=== PATIENT | female | born 1995 | race Caucasian/White ===

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

== ENCOUNTER 2018-11-29 19:40 | Emergency (ER) | payer OTHER ==
[~2018-11-29] VITALS: Ht 168.9 cm; Wt 117.5 kg
[~2018-11-29 19:40] MED LIST: DIPH25CA58 PO; PRED50TA PO; TRIA15OI TP
[2018-11-29 19:53] VITALS: BP 137/87
[2018-11-29] MEDS ORDERED: AMOX500C PO (20:25)
--- NOTE | 2018-11-29 20:25 | PHYS DOC ---
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 Patient states that symptoms are progressively worsening. She denies any fever. She does admit to a dry cough but no sputum production.[] Review of Systems Review of Systems Constitutional: Denies fever or chills [] HENT: Complains of congestion and sore throat [] Respiratory: Complains of cough without shortness of breath [] Cardiovascular: No additional information not addressed in HPI [] Integument: Denies rash or skin lesions [] Neurologic: Denies headache, focal weakness or sensory changes [] Endocrine: Denies polyuria or polydipsia [] All other systems were reviewed and found to be within normal limits, except as documented in this note. Allergies Allergies Allergies Coded Allergies Type Severity Reaction Last Updated Verified No Known Drug Allergies 03/14/13 No Physical Exam Physical Exam Constitutional: Well developed, well nourished, no acute distress, non-toxic appearance. [] HENT: Normocephalic, atraumatic, bilateral external ears normal, pharyngeal erythema without exudates is noted. [] Neck: Normal range of motion, no tenderness, supple, no stridor. [] Cardiovascular:Heart rate regular rhythm, no murmur [] Lungs & Thorax: Bilateral breath sounds clear to auscultation [] EKG EKG [] Radiology/Procedures Radiology/Procedures [] Course & Med Decision Making Course & Med Decision Making Pertinent Labs and Imaging studies reviewed. (See chart for details) [] Dragon Disclaimer Dragon Disclaimer This electronic medical record was generated, in whole or in part, using a voice recognition dictation system. Departure Departure Impression: Primary Impression: Pharyngitis Disposition: 01 HOME, SELF-CARE Condition: STABLE Referrals: UNKNOWN PCP NAME (PCP) Patient Instructions: Viral and Bacterial Pharyngitis Scripts Amoxicillin (AMOXICILLIN) 500 Mg Capsule 1 CAP PO TID, #30 CAP Prov: TARA ROBIN Jr. DO 11/29/18 Problem Qualifiers Primary Impression: Pharyngitis Pharyngitis/tonsillitis etiology: unspecified etiology Qualified Codes: J02.9 - Acute pharyngitis, unspecified TARA ROBIN Jr. DO Nov 29, 2018 20:25
== END 2018-11-29 20:39 | disposition home or self-care (01) ==
LOC: ER 19:40
DX: J02.9 Acute pharyngitis, unspecified (principal); Z90.89 Acquired absence of other organs
CPT/HCPCS: 99283

== ENCOUNTER 2020-12-18 11:51 | Emergency (ER) | payer OTHER ==
[~2020-12-18] VITALS: Ht 167.6 cm; Wt 85.4 kg
[~2020-12-18 11:51] MED LIST changes: +AMOX500C PO
[2020-12-18 12:10] VITALS: BP 127/70
--- NOTE | 2020-12-18 12:41 | PHYS DOC ---
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 Past Surgical History: No Surgical History, Tonsillectomy Smoking Status: Never Smoker Alcohol Use: Rarely Drug Use: Marijuana General Adult EDM: Chief Complaint: FINGER INJURY HPI: HPI: 25-year-old female past medical history of migraine headaches, presents to the ED with her sister, (patient consents to his/her/their knowledge and involvement in pts' medical care), with complaints of pain to her left pinky with bruising that occurred last night after she twisted her finger underneath another individual stating "I don't know exactly how I injured it." No prior injury to the left upper extremity or finger. Is right-hand dominant. Reports painful extension. Takes no routine medications. No recent antibiotics. Review of Systems: Review of Systems: Constitutional: Denies fever or chills. [] Eyes: Denies change in visual acuity. [] HENT: Denies nasal congestion or sore throat. [] Respiratory: Denies cough or shortness of breath. [] Cardiovascular: Denies chest pain or edema. [] GI: Denies nausea or vomiting : Denies dysuria or vaginal bleeding Musculoskeletal: Denies back pain or wrist/elbow pain Integument: Denies bleeding or diaphoresis Neurologic: Denies focal weakness or sensory changes. [] Psychiatric: Denies depression or anxiety. [] Heart Score: C/O Chest Pain: No Risk Factors: Risk Factors: DM, Current or recent (<one month) smoker, HTN, HLP, family history of CAD, obesity. Risk Scores: Score 0 - 3: 2.5% MACE over next 6 weeks - Discharge Home Score 4 - 6: 20.3% MACE over next 6 weeks - Admit for Clinical Observation Score 7 - 10: 72.7% MACE over next 6 weeks - Early Invasive Strategies Current Medications: Current Medications Medications (Trade) Dose Ordered Sig/Es Start Time Stop Time Status Last Admin Dose Admin Acetaminophen (Tylenol) 650 mg 1X ONCE 12/18/20 12:45 12/18/20 12:46 UNV Allergies: Allergies: Allergies Coded Allergies Type Severity Reaction Last Updated Verified No Known Drug Allergies 03/14/13 No Physical Exam: PE: Constitutional: Well developed, well nourished, no acute distress, non-toxic appearance. HENT: Normocephalic, atraumatic, Eyes: EOMI, conjunctiva normal, no discharge. Neck: Normal range of motion, supple, Cardiovascular: S1/2 present, regular rhythm Lungs & Thorax: Speaking in full sentences, bilateral equal chest rise, no tachypnea or increased work of breathing Skin: Warm, dry, bruising just distal to left 5th dip joint w/ no subungual hematoma, Extremities: cap refill less than 1 second, equal radial pulses, median/radial/ulnar nerve sensation intact, painful left 5th extension (perfers MCP/PIP/DIP joints in flexion)-is able to extend approximately 85%-per rn extends 100% Neurologic: Alert and oriented X 3, normal motor function, normal sensory function, no focal deficits noted. [] Psychologic: Affect normal, judgement normal, mood normal. [] Current Patient Data: Vital Signs: Vital Signs Date Time Temp Pulse Resp B/P (MAP) Pulse Ox O2 Delivery O2 Flow Rate FiO2 12/18/20 12:10 98.2 95 16 127/70 (89) 99 Room Air 98.2 EKG: EKG: [] Radiology/Procedures: Radiology/Procedures: IMAGING REPORT Signed PATIENT: LUIGI NORRIS ACCOUNT: [id number] : 1995 LOCATION: ER AGE: 25 SEX: F EXAM STATUS: PRE ER ORD. PHYSICIAN: LUCIEN REED DO REASON: fifth digit, bruised/blunt trauma PROCEDURE: FINGER(S) LEFT EXAM: Left small finger, 3 views. HISTORY: Trauma. Pain. COMPARISON: None. FINDINGS: 3 views of the left small finger are obtained. There is a mildly displaced intra-articular fracture along the dorsal base of the fifth distal pha lanx. There is overlying soft tissue swelling. IMPRESSION: Mildly displaced fracture involving the dorsal base of the fifth dis abad phalanx. Electronically signed by: Adrianna Porter MD (12/18/2020 1:00 PM) [id number] DICTATED and SIGNED BY: ADRIANNA PORTER MD DATE: 12/18/20 [id number] 0 Course & Med Decision Making: Course & Med Decision Making Pertinent Labs and Imaging studies reviewed. (See chart for details) Concern for left distal phalanx fracture with possible extensor tendon injury. Patient splinted, provided analgesia and recommended hand surgery follow-up within 1 week given restricted extensor range of motion (pt able to fully flex). Will discharge home with strict ED return precautions were given for neurologic deficits, severe pain or repeat injury. Encouraged urgent outpatient follow-up with PMD and hand surgery within 1 week. Life-threatening processes were considered but are low suspicion at this time, given history, physical exam and ED workup. Pt was educated on all prescription medications and adverse effects. All patient's questions were answered and pt was stable at time of discharge. Life/limb-threatening differential includes but is not limited to, trauma (fr acture, dislocation, laceration, compartment syndrome, tendon or ligament injury), neurovascular injury or deficitcva/tia, infection (osteomyelitis, abscess, cellulitis, septic arthritis, necrotizing fasciitis), deep vein thrombosis, renal/cardiac/liver disease, medication adverse effect, lymphedema/anasarca, vascular insufficiency or malignancy, I have spoken with the patient and/or caregivers. I explained the patient's condition, diagnoses and treatment plan based on the information available to me at this time. I have answered the patient and/or caregiver's questions and addressed any concerns. The patient and/or caregivers have a good understanding of patient's diagnosis, condition and treatment plan as can be expected at this point. Vital signs have been stable. Patient's condition is stable and appropriate for discharge from the emergency department. Patient will pursue further outpatient evaluation with primary care physician or other designated or consulting physician as outlined in the discharge instructions. The patient and/or caregivers are agreeable to this plan of care and follow-up instructions have been explained in detail. The patient and/or caregivers have received these instructions in written form and have expressed an understanding of the discharge instructions. The patient and/or caregivers are aware that any significant change of condition or worsening of symptoms should prompt immediate return to this or the closest emergency department or call to 911. Drea Disclaimer: Drea Disclaimer: This electronic medical record was generated, in whole or in part, using a voice recognition dictation system. Departure Departure Impression: Primary Impression: Fracture of distal phalanx of finger of left hand Additional Impression: Contusion Disposition: HOME / SELF CARE / HOMELESS Condition: STABLE Referrals: UNKNOWN PCP NAME (PCP) Follow-up with your primary care physician in 24 to 48 hours for routine care OR FOLLOW UP WITH FAMILY MEDICINE: [address] [place] [address] Patient Instructions: Contusion, Finger Fracture (Phalangeal)-[facility] Additional Instructions: [facility] FOR DEFIINITIVE MANAGEMENT WITHIN THE NEXT 7 DAYS if you should be unable to fully move your finger Appointments may be made with Byron Pina MD, Venu Wiggins MD, Nikunj Crouch MD or Praneeth Rosas MD, by calling [phone] EMERGENCY DEPARTMENT GENERAL DISCHARGE INSTRUCTIONS Thank you for coming to [facility] Emergency Department (ED) today and trusting us with you care. We trust that you had a positive experience in our Emergency Department. If you wish to speak to the department management, you may call the Director at [phone]. YOUR FOLLOW UP INSTRUCTIONS ARE FOLLOWS: 1. Do you have a private Doctor? If you do not have a private doctor, please ask for a resource list of physicians or clinics that may be able to assist you with follow up care. 2. The Emergency Physicain has interpreted your x-rays. The X-Ray specialist will also review them. If there is a change in the findings, you will be notified in 48 h ours when at all possible. 3. A lab test or culture has been done, your results will be reviewed and you will be notified if you need a change in treatment. ADDITIONAL INSTRUCTIONS AND INFORMATION: 1. Your care today has been supervised by a physician who is specially trained in emergency care. Many problems require more than one evaluation for a complete diagnosis and treatment. We recommend that you schedule your follow up appointment as recommended to ensure complete treatment of you illness or injury. If you are unable to obtain follow up care and continue to have a problem, or if your condition worsens, we recommend that you return to the ED. 2. We are not able to safely determine your condition over the phone nor are we able to give sound medical advice over the phone. For these safety reasons, if you call for medical advice we will ask you to come to the ED for further evaluation. 3. If you have any questions regarding these discharge instructions please call the ED at [phone]. SAFETY INFORMATION: In the interest of safety, wellness, and injury prevention; we encourage you to wear your sealbelt, if you smoke; quite smoking, and we encourage family to use a protective helmet for bicycling and other sporting events that present an increased risk for head injury. IF YOUR SYMPTOMS WORSEN OR NEW SYMPTOMS DEVELOP, OR YOU HAVE CONCERNS ABOUT YOUR CONDITION; OR IF YOUR CONDITION WORSENS WHILE YOU ARE WAITING FOR YOUR FOLLOW UP APPOINTMENT; EITHER CONTACT YOUR PRIMARY CARE DOCTOR, THE PHYSICIAN WHOSE NAME AND NUMBER YOU WERE GIVEN, OR RETURN TO THE ED IMMEDIATELY. Scripts Hydrocodone Bit/Acetaminophen (HYDROCODONE-APAP 5-325 ) 1 Tab Tablet 1 TAB PO PRN Q6HRS PRN for PAIN for 3 Days, #12 TAB 0 Refills Prov: LUCIEN REED DO 12/18/20 LUCIEN REED DO Dec 18, 2020 12:41
[2020-12-18] MEDS ORDERED: ACETAMINOPHEN 325 MG TABLET. PO ONE (12:45)
--- NOTE | 2020-12-18 13:03 | RAD ---
EXAM: Left small finger, 3 views. HISTORY: Trauma. Pain. COMPARISON: None. FINDINGS: 3 views of the left small finger are obtained. There is a mildly displaced intra-articular fracture along the dorsal base of the fifth distal phalanx. There is overlying soft tissue swelling. IMPRESSION: Mildly displaced fracture involving the dorsal base of the fifth distal phalanx. Electronically signed by: Adrianna Contreras MD (12/18/2020 1:00 PM) [id number]
[2020-12-18] MEDS ORDERED: HYDROcodone/APAP 5/325MG 1 TAB TABLET PO ONE (13:30)
[2020-12-18] MEDS ORDERED: HYDR-2761 PO (13:37)
== END 2020-12-18 13:45 | disposition home or self-care (01) ==
LOC: ER 11:51
DX: S62.637A Displaced fracture of distal phalanx of left little finger, initial encounter for closed fracture (principal); G43.909 Migraine, unspecified, not intractable, without status migrainosus; X50.9XXA Other and unspecified overexertion or strenuous movements or postures, initial encounter; Y93.89 Activity, other specified; Y92.89 Other specified places as the place of occurrence of the external cause; Y99.8 Other external cause status
CPT/HCPCS: 29130; 73140; 99283